=== PATIENT | female | born 1995 | race Caucasian/White ===

== ENCOUNTER 2017-03-10 13:17 | Emergency (ER) | payer OTHER ==
--- NOTE | ~2017-03-10 | CR181 ---
[facility] A Service of [facility] & [facility] RADIOLOGY TEXT RESULTS PATIENT: SALVADOR MEJIA LOCATION: CFTX : [birth year] UNIT #: [id number] AGE: [address]: Molly Jack APRN SEX: F ORDER DR: [id number] [facility] [address] [place], [place] [address] [id number] MR#: [id number] Acc #: [id number] NAME: SALVADOR MEJIA : 1995 SEX: F STUDY DATE/TIME: 03/10/2017 14:34 UNIT: [facility] ROOM: STUDY DESCRIPTION: CR Lumbar Spine 2 or 3 Views Attending Physician: Molly Jack A.P.R.N. Ordering Physician: [facility] Primary Care Physician: Shahana Cyr A.P.R.N. MEDICAL IMAGING REPORT This report is preliminary unless electronic signature is present EXAM Lumbar spine 3 views INDICATIONS Low back pain since last night, back pain radiates down both legs. COMPARISON 01/19/2014 FINDINGS Stable wedging of multiple lower thoracic vertebral bodies and L1 likely physiologic. No acute compression deformity. Multilevel Schmorl nodes are again noted. Mild disc space narrowing at L5-S1. Previous cholecystectomy. IMPRESSION Stable degenerative changes. No acute findings. Dictated by... Dru Rucker M.D. THIS IS AN ELECTRONICALLY VERIFIED REPORT Dru Rucker M.D. at 03/11/2017 7:38 AM Eleazar TD: 03/10/2017 17:51 JOB #: [id number] MEDICAL IMAGING REPORT Page 1 of 1 COPY
[~2017-03-10 13:17] MED LIST: BACTRIM DS TABL1 TA1 PO; HYDROCODON-ACE1 EAC9 PO; LEVAQUIN PO; PRENATAL1 TA1 PO
== END 2017-03-10 16:34 | disposition home or self-care (01) ==
LOC: CFTX 13:17 → CED 13:17 → CFTX 14:17
DX: M54.42 Lumbago with sciatica, left side (principal); M54.41 Lumbago with sciatica, right side; Z90.49 Acquired absence of other specified parts of digestive tract
CPT/HCPCS: 72100; 84703; 96372; 99283; J1885